=== PATIENT | male | born 2005 | race Caucasian/White ===

== ENCOUNTER 2024-07-18 18:37 | Emergency (ER) | payer OTHER ==
[2024-07-18 19:03] LABS: Absolute Eosinophils 0.1 K/uL (0-0.5); Absolute Lymphocytes (CBC) 1.6 K/uL (0.7-4.9); Absolute Monocytes 0.4 K/uL (0.1-1.3); Absolute Neutrophil 3.6 K/uL (1.8-8.0); Basophils % 0.6 % (0-1.3); Eosinophils % 1.6 % (0-4.4); Hematocrit 42.9 % (39.6-49.0); Hemoglobin 15.1 g/dL (13.6-17.9); Lymphocytes % 28.1 % (15.3-44.8); MCH 30.4 pg (27.0-35.0); MCHC 35.3 g/dL (32.0-36.0); MPV 6.5 fL (7.6-11.3); Monocytes % 7.7 % (3.3-12.3); Nucleated Red Blood Cells % 0.1 % (0-0); Platelets 221 thou/uL (152-406); RBC Red Blood Cell Count 4.98 M/uL (4.33-5.43); Red Cell Distribution Width 12.8 % (12.1-15.2)
[2024-07-18 19:11] LABS: PT Prothrombin Time 11.9 SECONDS (9.4-12.5); PTT, Activated Partial Thromb 24.7 SECONDS (24.3-36.9); Protime INR 1.06
[2024-07-18 19:21] LABS: ALT/SGPT 34 U/L (16-61); AST/SGOT 16 U/L (15-37); Albumin 3.9 g/dL (3.4-5.0); Albumin/Globulin Ratio 1.2 (1.1-1.8); Alkaline Phosphatase 136 U/L (45-117); Anion Gap 10.2 mEq/L (5.0-15.0); BUN Blood Urea Nitrogen 13 mg/dL (7-18); Bicarbonate 25 mEq/L (21-32); Bilirubin Total 0.4 mg/dL (0.2-1.0); Globulin 3.3 g/dL (2.3-3.5); Glomerular Filtration Rate 98 ml/min (=/>90); Glucose Level 116 mg/dL (74-106); Potassium 3.2 mEq/L (3.5-5.1); Protein, Total 7.2 g/dL (6.4-8.2); Sodium Level 141 mEq/L (136-145)
[2024-07-18 19:22] LABS: Bilirubin Direct < 0.2 mg/dL (0-0.2); Bilirubin Indirect, Calculated 0.2 mg/dL (0.2-0.8)
--- NOTE | 2024-07-18 19:30 | EDPHYS ---
Physician Documentation [facility] Name: Crow Hernandez Age: 18 yrs Sex: Male : 2005 Arrival Date: 07/18/2024 Time: 18:37 Bed 8 Private MD: ED Physician Sheng Walls HPI: 07/18 19:23 This 18 yrs old Male presents to ER via EMS with complaints of Vomiting. aurelia 19:23 The patient presents to the emergency department with nausea, vomiting, that is aurelia continuous. Onset: The symptoms/episode began/occurred just prior to arrival. Possible causes: etoh. The symptoms are aggravated by alcohol, The symptoms are alleviated by nothing. Associated signs and symptoms: Pertinent positives: abdominal pain, nausea, vomiting. Severity of symptoms: At their worst the symptoms were moderate in the emergency department the symptoms have improved. It is unknown whether or not the patient has had similar symptoms in the past. Historical: - Allergies: 18:44 No Known Allergies; ko1 - Home Meds: 18:44 Unable to obtain [Active]; ko1 - PMHx: 18:44 Unable to Obtain; ko1 - PSHx: 18:44 Unable to Obtain; ko1 - Immunization history:: Adult Immunizations unknown. - Infectious Disease History:: Denies. - Social history:: Smoking status: unknown. - Family history:: not pertinent. ROS: 19:23 Constitutional: Negative for fever, chills, and weight loss, Eyes: Negative for injury, aurelia pain, redness, and discharge, ENT: Negative for injury, pain, and discharge, Neck: Negative for injury, pain, and swelling, Cardiovascular: Negative for chest pain, palpitations, and edema, Respiratory: Negative for shortness of breath, cough, wheezing, and pleuritic chest pain, Back: Negative for injury and pain, : Negative for injury, bleeding, discharge, and swelling, MS/Extremity: Negative for injury and deformity, Skin: Negative for injury, rash, and discoloration, Neuro: Negative for headache, weakness, numbness, tingling, and seizure, Psych: Negative for depression, anxiety, suicide ideation, homicidal ideation, and hallucinations, Allergy/Immunology: Negative for hives, rash, and allergies, Endocrine: Negative for neck swelling, polydipsia, polyuria, polyphagia, and marked weight changes, Hematologic/Lymphatic: Negative for swollen nodes, abnormal bleeding, and unusual bruising, 19:23 Abdomen/GI: Positive for abdominal pain, nausea and vomiting, Exam: 19:23 Constitutional: This is a well developed, well nourished patient who is awake, alert, aurelia and in no acute distress. Head/Face: Normocephalic, atraumatic. Eyes: Pupils equal round and reactive to light, extra-ocular motions intact. Lids and lashes normal. Conjunctiva and sclera are non-icteric and not injected. Cornea within normal limits. Periorbital areas with no swelling, redness, or edema. ENT: Nares patent. No nasal discharge, no septal abnormalities noted. Tympanic membranes are normal and external auditory canals are clear. Oropharynx with no redness, swelling, or masses, exudates, or evidence of obstruction, uvula midline. Mucous membranes moist. Neck: Trachea midline, no thyromegaly or masses palpated, and no cervical lymphadenopathy. Supple, full range of motion without nuchal rigidity, or vertebral point tenderness. No Meningismus. Chest/axilla: Normal chest wall appearance and motion. Nontender with no deformity. No lesions are appreciated. Cardiovascular: Regular rate and rhythm with a normal S1 and S2. No gallops, murmurs, or rubs. Normal PMI, no JVD. No pulse deficits. Respiratory: Lungs have equal breath sounds bilaterally, clear to auscultation and percussion. No rales, rhonchi or wheezes noted. No increased work of breathing, no retractions or nasal flaring. Abdomen/GI: Soft, non-tender, with normal bowel sounds. No distension or tympany. No guarding or rebound. No evidence of tenderness throughout. Back: No spinal tenderness. No costovertebral tenderness. Full range of motion. Male : Normal genitalia with no discharge or lesions. Skin: Warm, dry with normal turgor. Normal color with no rashes, no lesions, and no evidence of cellulitis. MS/ Extremity: Pulses equal, no cyanosis. Neurovascular intact. Full, normal range of motion. Neuro: Awake and alert, GCS 15, oriented to person, place, time, and situation. Cranial nerves II-XII grossly intact. Motor strength 5/5 in all extremities. Sensory grossly intact. Cerebellar exam normal. Normal gait. Psych: Awake, alert, with orientation to person, place and time. Behavior, mood, and affect are within normal limits. Vital Signs: 18:40 BP 97 / 52; Pulse 84; Resp 18; Temp 97; Pulse Ox 99% on R/A; ko1 MDM: 18:40 Patient medically screened. [facility] 19:25 Differential diagnosis: Nonspecific abd pain, gastritis, viral gastroenteritis, aurelia gastroenteritis, etoh. Data reviewed: vital signs, nurses notes. Consideration of Admission/Observation Escalation of care including admission/observation considered. I considered the following discharge prescriptions or medication management in the emergency department Medications were administered in the Emergency Department. See MAR. Care significantly affected by the following chronic conditions: none. 07/18 18:44 Order name: Acetaminophen [facility] 07/18 18:44 Order name: Basic Metabolic Panel [facility] 07/18 18:44 Order name: CBC with Diff [facility] 07/18 18:44 Order name: ETOH Level [facility] 07/18 18:44 Order name: Hepatic Function [facility] 07/18 18:44 Order name: PT-INR [facility] 07/18 18:44 Order name: Ptt, Activated [facility] 07/18 18:44 Order name: Salicylate [facility] 07/18 18:44 Order name: EKG; Complete Time: 18:45 [facility] 07/18 18:44 Order name: EKG - Nurse/Tech [facility] 07/18 18:44 Order name: IV Saline Lock; Complete Time: 18:56 [facility] 07/18 18:44 Order name: Labs collected and sent; Complete Time: 18:56 [facility] 07/18 18:44 Order name: Suicide Screening ([place]) aurelia Administered Medications: 23:02 Not Given (Patient Refused): ns 0.9% 1000 ml IV at 1 bolus Per protocol; 1000 mL bolus iw 23:02 Not Given (Patient Refused): [id number] mg IV at per protocol once iw 23:02 Not Given (Patient Refused): Banana Bag - (ns 0.9% 1000 ml, folic acid ivpb 1 mg, iw [id number] mg, multivitamin1 amp) IV at 500 ml/hr once 23:02 Not Given (Patient Refused): ondansetron 8 mg IVP once; over 2 minutes iw 23:02 Not Given (Patient Refused): [id number] mg IVP once; dilute with 10 mL 0.9% NaCl; iw give over 2 minutes Disposition Summary: 07/18/24 19:29 Discharge Ordered Notes: Location: Home aurelia Problem: new aurelia Symptoms: have improved aurelia Condition: Stable aurelia Diagnosis - Nausea with vomiting, unspecified aurelia - Alcohol abuse aurelia - Alcohol abuse with intoxication aurelia Followup: aurelia - With: Private Physician - When: 2 - 3 days - Reason: Recheck today's complaints, Continuance of care, Re-evaluation by your physician Discharge Instructions: - Discharge Summary Sheet aurelia - Alcohol Intoxication aurelia - Nausea and Vomiting, Adult aurelia - Nausea, Adult aurelia - Alcohol Intoxication, [id number]-rt-[id number] aurelia - Nausea, Adult, [id number] aurelia Forms: - Medication Reconciliation Form aurelia - Antibiotic Education aurelia - Prescription Opioid Use aurelia - Patient Portal Instructions aurelia - Leadership Thank You Letter [facility] Prescriptions: - ondansetron 4 mg Oral Tablet,disintegrating - take 1 tablet ORAL route every 8-10 hours for 4 days; 15 tablet; Refills: 0, aurelia Product Selection Permitted Signatures: Dispatcher [employer] EDMS Sheng Walls MD MD cha Oliver, Kathy, RN RN koAlberta France RN iw Corrections: (The following items were deleted from the chart) 18:45 18:44 ACETAMINOPHEN+C.LAB.BRZ ordered. EDMS EDMS 18:45 18:44 BASIC METABOLIC PANEL+C.LAB.BRZ ordered. EDMS EDMS 18:45 18:44 CBC+H.LAB.BRZ ordered. EDMS EDMS 18:45 18:44 ETHANOL+C.LAB.BRZ ordered. EDMS EDMS 18:45 18:45 HEPATIC FUNCTION+C.LAB.BRZ ordered. EDMS EDMS 18:45 18:45 PROTIME (+INR)+COAG.LAB.BRZ ordered. EDMS EDMS 18:45 18:45 PTT, ACTIVATED+COAG.LAB.BRZ ordered. EDMS EDMS 18:45 18:45 SALICYLATE+C.LAB.BRZ ordered. EDMS EDMS 18:45 18:45 Urinalysis+U.LAB.BRZ ordered. EDMS EDMS 18:45 18:45 URINE DRUG SCREEN+UC.LAB.BRZ ordered. EDMS EDMS
--- NOTE | 2024-07-18 19:30 | ER ---
Nurse's Notes [facility] Name: Crow Hernandez Age: 18 yrs Sex: Male : 2005 Arrival Date: 07/18/2024 Time: 18:37 Bed 8 Private MD: Diagnosis: Nausea with vomiting, unspecified;Alcohol abuse;Alcohol abuse with intoxication Presentation: 07/18 18:40 Chief complaint: EMS states: called to [facility] where initially friends said he ko1 drank a half of a fifth of fireball by himself. Then they said he had 8 shots and drank water and gatorade in between shots. Friends called after he threw up 4 times. Coronavirus screen: At this time, the client does not indicate any symptoms associated with coronavirus-19. Ebola Screen: No symptoms or risks identified at this time. Initial Sepsis Screen: Does the patient meet any 2 criteria? No. Patient's initial sepsis screen is negative. Does the patient have a suspected source of infection? No. Patient's initial sepsis screen is negative. Risk Assessment: Do you want to hurt yourself or someone else? Patient reports no desire to harm self or others. Onset of symptoms was July 18, 2024. Care prior to arrival: None. Activity prior to arrival: vomiting. 18:40 Method Of Arrival: EMS: [facility] ko1 18:40 Acuity: JOHN 3 ko1 Triage Assessment: 18:44 General: Appears in no apparent distress. Behavior is agitated. Pain: Denies pain. ko1 EENT: No deficits noted. Neuro: No deficits noted. Cardiovascular: No deficits noted. Respiratory: No deficits noted. GI: Reports vomiting. : No deficits noted. Derm: No deficits noted. Musculoskeletal: No deficits noted. Historical: - Allergies: 18:44 No Known Allergies; ko1 - Home Meds: 18:44 Unable to obtain [Active]; ko1 - PMHx: 18:44 Unable to Obtain; ko1 - PSHx: 18:44 Unable to Obtain; ko1 - Immunization history:: Adult Immunizations unknown. - Infectious Disease History:: Denies. - Social history:: Smoking status: unknown. - Family history:: not pertinent. Screenin:[facility] ED Fall Risk Assessment (Adult) History of falling in the last 3 months, ko1 including since admission No falls in past 3 months (0 pts) Confusion or Disorientation No (0 pts) Intoxicated or Sedated Yes (3 pts) Impaired Gait No (0 pts) Mobility Assist Device Used No (0 pt) Altered Elimination No (0 pt) Score/Fall Risk Level 3 or more points = High Risk Oriented to surroundings, Maintained a safe environment, Educated pt \T\ family on fall prevention, incl call for assistance when getting out of bed, Assessed \T\ reinforced patient's understanding of fall precautions, Provided non-skid footwear, Hourly rounding (assess needs \T\ fall precautionary measures) done. Abuse screen: Denies threats or abuse. Denies injuries from another. Nutritional screening: No deficits noted. Tuberculosis screening: No symptoms or risk factors identified. Assessment: 18:51 Reassessment: see triage note. GI: Abdomen is flat, non-distended, Reports vomiting. ko1 19:16 Reassessment: pt attempting to walk out of dept, pt brought back to ER bed 8, educated iw pt on need to remain in dept until he finds a ride to pick him up or until he rissa up. I called pt mother in [place] , she will attempt to arrange transportation for pt. Pt refuses meds or IVF at this time, water given, pt tolerating PO now. Vital Signs: 18:40 BP 97 / 52; Pulse 84; Resp 18; Temp 97; Pulse Ox 99% on R/A; ko1 ED Course: 18:39 Patient arrived in ED. ko1 18:40 Sheng Walls MD is Attending Physician. [facility] 18:40 Jenny Cornejo, RN is Primary Nurse. ko1 18:44 Triage completed. ko1 18:44 Arm band placed on right wrist. Patient placed in an exam room, on a stretcher, on ko1 monitoring and evaluation advisor, on pulse oximetry, Patient notified of wait time. 18:47 Patient has correct armband on for positive identification. Bed in low position. Call ko1 light in reach. Side rails up X2. Provided Education on: labs. Client placed on continuous cardiac and pulse oximetry monitoring. NIBP monitoring applied. pvc monitor on. Door closed. Noise minimized. Lights dimmed. Warm blanket given. Pillow given. 18:56 Initial lab(s) drawn, by ED staff, sent to lab. Inserted saline lock: 18 gauge in right ko1 antecubital area, using aseptic technique. Blood collected. Flushed with 10 mL NS. 18:57 Acetaminophen Sent. ko1 18:57 Basic Metabolic Panel Sent. ko1 18:57 CBC with Diff Sent. ko1 18:57 ETOH Level Sent. ko1 18:57 Hepatic Function Sent. ko1 18:57 PT-INR Sent. ko1 18:57 Ptt, Activated Sent. ko1 18:57 Salicylate Sent. ko1 19:04 No provider procedures requiring assistance completed. ko1 19:18 Primary Nurse role handed off by Jenny Cornejo, RN iw 19:18 Alberta Dockery, RN is Primary Nurse. iw Administered Medications: 23:02 Not Given (Patient Refused): ns 0.9% 1000 ml IV at 1 bolus Per protocol; 1000 mL bolus iw 23:02 Not Given (Patient Refused): [id number] mg IV at per protocol once iw 23:02 Not Given (Patient Refused): Banana Bag - (ns 0.9% 1000 ml, folic acid ivpb 1 mg, iw [id number] mg, multivitamin1 amp) IV at 500 ml/hr once 23:02 Not Given (Patient Refused): ondansetron 8 mg IVP once; over 2 minutes iw 23:02 Not Given (Patient Refused): [id number] mg IVP once; dilute with 10 mL 0.9% NaCl; iw give over 2 minutes Medication: 18:47 VIS not applicable for this client. ko1 Outcome: 19:29 Discharge ordered by . aurelia 19:53 Patient left the ED. iw Signatures: Sheng Walls MD MD cha Williams, Irene, DIETER GARCIAS iw Jenny Cornejo, RN RN ko1
[2024-07-18 20:03] VITALS: BP 97/52; TEMP 97; O2SAT 99
== END 2024-07-18 19:53 | disposition home or self-care (01) ==
LOC: ER 18:37
DX: R11.2 Nausea with vomiting, unspecified (principal); F10.129 Alcohol abuse with intoxication, unspecified
CPT/HCPCS: 36415; 80048; 80076; 80143; 80179; 82077; 85025; 85610; 85730; 93005; 99284